=== PATIENT | female | born 1950 | race African-American/Black ===

== ENCOUNTER 2024-01-06 15:46 | Inpatient (IN) | payer MEDICARE, OTHER ==
[~2024-01-06] VITALS: Ht 157.5 cm; Wt 81.6 kg
[~2024-01-06 15:46] MED LIST: GABAPENTIN PO; KEPPRA PO; NORCO
[2024-01-06] MEDS: MORPHINE SULFATE 4 MG/ML INJ (FOR IV/IM USE) IV STA (17:10)
[2024-01-06] MEDS: ONDANSETRON HCL 4MG/2ML INJ IV STA (17:10)
[2024-01-06 18:37] LABS: BASOPHILS % 0.7 % (0.0-2.0); EOSINOPHILS % 0.4 % (0.0-5.0); HEMATOCRIT. 32.6 % (36.0-48.0); HEMOGLOBIN. 10.7 g/dL (12.0-16.0); MEAN CORPUSCULAR HEMOGLOBIN 30.1 pg (28.0-32.0); MEAN CORPUSCULAR VOLUME 91.3 fL (81.0-99.0); MEAN PLATELET VOLUME 7.1 fl (7.4-10.4); MONOCYTES % 6.9 % (2.0-8.0); PLATELET 354 x1000/uL (130-400); RED BLOOD CELL COUNT 3.57 mill/uL (4.2-5.4); RED CELL DISTRIBUTION WIDTH 14.5 % (11.6-14.6); WHITE BLOOD COUNT 9.4 x1000/uL (4.5-11.0)
[2024-01-06 18:43] LABS: CHLORIDE 101 mEq/L (98-107); POTASSIUM 4.7 mEq/L (3.5-5.1); SODIUM 136 mEq/L (136-145)
[2024-01-06 18:44] LABS: CARBON DIOXIDE 30 mEq/L (21-32)
[2024-01-06 18:45] LABS: CALCIUM 10.4 mg/dL (8.7-10.4)
[2024-01-06 18:49] LABS: CREATININE 0.9 mg/dL (0.6-1.0); GLUCOSE 93 mg/dL (70-105)
[2024-01-06 18:50] LABS: UREA NITROGEN BLOOD 17 mg/dL (9-23)
[2024-01-06 18:51] LABS: ALANINE AMINOTRANSFERASE 21 IU/L (10-49); ALBUMIN 4.4 g/dL (3.2-4.8); ASPARTATE AMINOTRANSFERASE 24 IU/L (<34); D-DIMER 1.1 mg/L FEU (<0.50); INR 0.9; PARTIAL THROMBOPLASTIN TIME 28.5 sec (23.4-31.0); PROTHROMBIN TIME 10.5 sec (9.6-11.0)
[2024-01-06 18:52] LABS: BILIRUBIN TOTAL 0.4 mg/dL (0.1-1.0); PROTEIN TOTAL 7.7 g/dL (6.0-8.3)
[2024-01-06 18:54] LABS: BILIRUBIN DIRECT < 0.1 mg/dL (<=3.0); TROPONIN I HIGH SENSITIVITY < 4 ng/L (3.0-34)
[2024-01-06] MEDS: ENOXAPARIN 80MG/0.8ML SYR SUBCUT ONE (19:00)
[2024-01-06] MEDS: AZITHROMYCIN 500MG/250ML 250 ML IV ONE (19:00)
[2024-01-06] MEDS ORDERED: ASPIRIN 325MG EC TABLET PO ONE (19:00)
[2024-01-06] MEDS: SODIUM CHLORIDE 0.9% (SEPSIS BOLUS) IV ONE (19:12)
[2024-01-06] MEDS: CEFTRIAXONE 1GM/50ML 50 ML IV ONE (19:16)
[2024-01-06] MEDS ORDERED: IPRATROPIUM/ALBUTEROL 0.5-3(2.5)MG/3ML NEB HHN PRN (20:45)
[2024-01-06] MEDS ORDERED: ONDANSETRON HCL 4MG/2ML INJ IV PRN (20:45)
[2024-01-06] MEDS ORDERED: ACETAMINOPHEN 325MG TABLET PO PRN ×2 (20:45)
[2024-01-06] MEDS ORDERED: GUAIFENESIN 200MG/10ML SUGAR FREE UDC PO PRN (20:45)
[2024-01-06] MEDS ORDERED: DOCUSATE SODIUM 100MG CAPSULE PO PRN (20:45)
[2024-01-06] MEDS ORDERED: CEFTRIAXONE 1GM/50ML 50 ML IV ONE (21:00)
[2024-01-06] MEDS ORDERED: AZITHROMYCIN 500MG/250ML 250 ML IV SCH (21:00)
[2024-01-06] MEDS: ENOXAPARIN 40MG/0.4ML SYR SUBCUT SCH (21:50)
[2024-01-06] MEDS: ASPIRIN 325MG EC TABLET PO NR (21:51)
[2024-01-06] MEDS: FUROSEMIDE 40MG/4ML VIAL IVP NR (21:51)
[2024-01-06] MEDS: FAMOTIDINE 20MG TABLET PO SCH (21:51)
[2024-01-06 22:21] LABS: CLARITY URINE CLEAR (CLEAR); COLOR URINE YELLOW (YELLOW); GLUCOSE URINE NEGATIVE (NEGATIVE); KETONES URINE NEGATIVE (NEGATIVE); LEUKOCYTE ESTERASE URINE NEGATIVE (NEGATIVE); NITRITE URINE NEGATIVE (NEGATIVE); OCCULT BLOOD URINE NEGATIVE (NEGATIVE); PROTEIN URINE NEGATIVE (NEGATIVE); SPECIFIC GRAVITY URINE 1.009 (1.005-1.030); UROBILINOGEN URINE 0.2 E.U./dL (0.2-1.0)
[2024-01-06 22:36] LABS: *AMPHETAMINES SCREEN URINE NEGATIVE (NEGATIVE); *BARBITURATES SCREEN URINE NEGATIVE (NEGATIVE); *BENZODIAZEPINES SCREEN URINE PRESUMPTIVE POSITIVE (NEGATIVE); *COCAINE SCREEN URINE PRESUMPTIVE POSITIVE (NEGATIVE); CANNABINOID URINE SCREEN NEGATIVE (NEGATIVE); ECSTASY MDMA SCREEN URINE NEGATIVE (NEGATIVE); METHADONE URINE SCREEN NEGATIVE (NEGATIVE); OPIATES URINE SCREEN PRESUMPTIVE POSITIVE (NEGATIVE); PHENCYCLIDINE URINE SCREEN PRESUMTIVE POSITIVE (NEGATIVE)
[2024-01-06 22:45] VITALS: PULSE 85; RESP 22; O2SAT 93
[2024-01-06] MEDS: IPRATROPIUM/ALBUTEROL 0.5-3(2.5)MG/3ML NEB HHN SCH (22:45)
[2024-01-06] MEDS: ASPIRIN 81MG EC TABLET PO ONE (23:00)
[2024-01-06 23:32] LABS: IRON 50 ug/dL (50-170)
[2024-01-06 23:35] LABS: TOTAL IRON BINDING CAPACITY 388 ug/dl (250-425)
[2024-01-06 23:38] LABS: FOLIC ACID (FOLATE) SERUM 17.35 ng/mL (>5.38); VITAMIN B12 SERUM 394 pg/mL (211-911)
[2024-01-07] VITALS (7 sets, daily range): BP systolic 11–119; BP diastolic 55–65; PULSE 82–90; RESP 16–20; TEMP 36.16956–37.05852; O2SAT 94–98
[2024-01-07] MEDS: KETOROLAC 15MG/ML VIAL IV NR (01:24)
[2024-01-07 11:23] LABS: CHLORIDE 105 mEq/L (98-107); POTASSIUM 4.3 mEq/L (3.5-5.1); SODIUM 141 mEq/L (136-145)
[2024-01-07 11:24] LABS: CALCIUM 9.9 mg/dL (8.7-10.4); CARBON DIOXIDE 29 mEq/L (21-32)
[2024-01-07 11:29] LABS: BASOPHILS % 0.8 % (0.0-2.0); GLUCOSE 84 mg/dL (70-105); HEMATOCRIT. 31.7 % (36.0-48.0); HEMOGLOBIN. 10.1 g/dL (12.0-16.0); LYMPHOCYTES % 22.6 % (20.0-50.0); MEAN CORPUSCULAR HEMOGLOBIN 29.7 pg (28.0-32.0); MEAN CORPUSCULAR HGB CONC 31.9 g/dL (31.0-37.0); MEAN CORPUSCULAR VOLUME 92.9 fL (81.0-99.0); MEAN PLATELET VOLUME 7.7 fl (7.4-10.4); MONOCYTES % 8.3 % (2.0-8.0); NEUTROPHILS % 67.3 % (40.0-76.0); PLATELET 334 x1000/uL (130-400); RED BLOOD CELL COUNT 3.42 mill/uL (4.2-5.4); RED CELL DISTRIBUTION WIDTH 14.7 % (11.6-14.6); TRIGLYCERIDE 48 mg/dL (0-150); WHITE BLOOD COUNT 6.4 x1000/uL (4.5-11.0)
[2024-01-07 11:30] LABS: LDL CHOLESTEROL 87 mg/dL (5-100); UREA NITROGEN BLOOD 17 mg/dL (9-23)
[2024-01-07 11:31] LABS: CHOLESTEROL 195 mg/dL (<200); HDL CHOLESTEROL 89 mg/dL (>65)
[2024-01-07 11:36] LABS: T4 FREE 1.41 ng/dL (0.89-1.76)
[2024-01-07 11:37] LABS: THYROID STIMULATING HORMONE 0.67 uIU/mL (0.55-4.78)
[2024-01-07] MEDS ORDERED: NALOXONE HCL 0.4MG/ML VIAL IV PRN (12:45)
[2024-01-07] MEDS: CEFTRIAXONE 1GM/50ML 50 ML IV SCH (17:37)
[2024-01-07] MEDS: AZITHROMYCIN 500MG/250ML 250 ML IV SCH (18:58)
[2024-01-07] MEDS: HYDROCODONE/ACETAMINOPHEN 5/325MG TABLET PO PRN (22:24)
[2024-01-08] VITALS (7 sets, daily range): BP systolic 110–126; BP diastolic 57–69; PULSE 73–89; RESP 16–20; TEMP 36.16956–36.696; O2SAT 93–97
[2024-01-08 07:04] LABS: CALCIUM 9.9 mg/dL (8.7-10.4); CARBON DIOXIDE 30 mEq/L (21-32); CHLORIDE 104 mEq/L (98-107); POTASSIUM 4.5 mEq/L (3.5-5.1); SODIUM 140 mEq/L (136-145)
[2024-01-08 07:09] LABS: CREATININE 0.9 mg/dL (0.6-1.0)
[2024-01-08 07:10] LABS: GLUCOSE 93 mg/dL (70-105); UREA NITROGEN BLOOD 16 mg/dL (9-23)
[2024-01-08 07:12] LABS: PHOSPHORUS 3.6 mg/dL (2.5-4.9)
[2024-01-08 07:18] LABS: HEMATOCRIT 30.7 % (36.0-48.0); HEMOGLOBIN 9.7 g/dL (12.0-16.0); MEAN CORPUSCULAR HEMOGLOBIN 28.9 pg (28.0-32.0); MEAN CORPUSCULAR HGB CONC 31.7 g/dL (31.0-37.0); PLATELET 354 x1000/uL (130-400); RED BLOOD CELL COUNT 3.37 mill/uL (4.2-5.4); RED CELL DISTRIBUTION WIDTH 14.8 % (11.6-14.6); WHITE BLOOD COUNT 5.7 x1000/uL (4.5-11.0)
[2024-01-08] MEDS: AZITHROMYCIN 500 MG TABLET PO SCH (20:49)
[2024-01-09] VITALS (7 sets, daily range): BP systolic 112–133; BP diastolic 59–74; PULSE 75–84; RESP 18–20; TEMP 36.6696–37.16964; O2SAT 95–97
[2024-01-09] MEDS ORDERED: ASPI-1406 PO (05:26)
[2024-01-09] MEDS ORDERED: OMEP40CA20 PO (05:26)
[2024-01-09] MEDS ORDERED: DIAZ5TAB4 PO (05:26)
[2024-01-09] MEDS ORDERED: AMLO10TA80 PO (05:26)
[2024-01-09 07:00] LABS: CHLORIDE 104 mEq/L (98-107); POTASSIUM 4.3 mEq/L (3.5-5.1); SODIUM 140 mEq/L (136-145)
[2024-01-09 07:01] LABS: CARBON DIOXIDE 29 mEq/L (21-32)
[2024-01-09 07:06] LABS: CREATININE 0.8 mg/dL (0.6-1.0); GLUCOSE 80 mg/dL (70-105); UREA NITROGEN BLOOD 14 mg/dL (9-23)
[2024-01-09 07:12] LABS: HEMATOCRIT 31.2 % (36.0-48.0); HEMOGLOBIN 10.2 g/dL (12.0-16.0); MEAN CORPUSCULAR HEMOGLOBIN 29.8 pg (28.0-32.0); MEAN CORPUSCULAR HGB CONC 32.6 g/dL (31.0-37.0); MEAN CORPUSCULAR VOLUME 91.4 fL (81.0-99.0); PLATELET 381 x1000/uL (130-400); RED BLOOD CELL COUNT 3.41 mill/uL (4.2-5.4); RED CELL DISTRIBUTION WIDTH 14.8 % (11.6-14.6); WHITE BLOOD COUNT 5.6 x1000/uL (4.5-11.0)
[2024-01-09] MEDS: LACTULOSE 20G/30ML UDC PO NR (10:33)
== END 2024-01-09 14:15 | disposition home or self-care (01) | DRG 871 ==
LOC: ER 15:46 → EDBEDREQ 17:06 → 5WST 01-07 03:37 → 7WST 01-08 19:45
PROVIDERS: ADMIT Internal Medicine; ATTEND Internal Medicine
DX: A41.9 Sepsis, unspecified organism (principal); J96.01 Acute respiratory failure with hypoxia; J68.0 Bronchitis and pneumonitis due to chemicals, gases, fumes and vapors; E87.1 Hypo-osmolality and hyponatremia; N39.0 Urinary tract infection, site not specified; D64.9 Anemia, unspecified; K44.9 Diaphragmatic hernia without obstruction or gangrene; F19.10 Other psychoactive substance abuse, uncomplicated; Z20.822 Contact with and (suspected) exposure to COVID-19; K59.00 Constipation, unspecified; I11.0 Hypertensive heart disease with heart failure; E86.0 Dehydration; E86.9 Volume depletion, unspecified; I50.9 Heart failure, unspecified; R56.9 Unspecified convulsions; R79.89 Other specified abnormal findings of blood chemistry; Z90.710 Acquired absence of both cervix and uterus; Z79.82 Long term (current) use of aspirin; Z79.899 Other long term (current) drug therapy
CPT/HCPCS: 36415; 71045; 71250; 78580; 80048; 80061; 80076; 80305; 81003; 82607; 82746; 83540; 83550; 83605; 83735; 83880; 84100; 84439; 84443; 84484; 85025; 85027; 85379; 87426; 93005; 93970; 94640; 97162; 99285; J0456; J0696; J1650; J1885; J1940; J2270; J2405; J7030